=== PATIENT | male | born 1985 | race African-American/Black ===

== ENCOUNTER 2019-02-15 10:06 | Emergency (ER) | payer OTHER ==
[~2019-02-15] VITALS: Ht 190.5 cm; Wt 77.1 kg
[2019-02-15 10:13] VITALS: BP 112/68
== END 2019-02-15 11:13 | disposition home or self-care (01) ==
LOC: ER 10:06
DX: S62.331A Displaced fracture of neck of second metacarpal bone, left hand, initial encounter for closed fracture (principal); F17.210 Nicotine dependence, cigarettes, uncomplicated; Z88.1 Allergy status to other antibiotic agents; Y04.0XXA Assault by unarmed brawl or fight, initial encounter; Y93.89 Activity, other specified; Y92.89 Other specified places as the place of occurrence of the external cause; Y99.8 Other external cause status

== ENCOUNTER 2019-09-11 19:53 | Emergency (ER) | payer OTHER ==
[~2019-09-11] VITALS: Ht 190.5 cm; Wt 88.5 kg
[2019-09-11 20:31] LABS: ABSOLUTE NEUTROPHILS 8.3 thou/uL (1.4-8.2); BASOPHILS 0.5 % (0.0-2.0); EOSINOPHILS 0.7 % (0.0-3.0); HEMATOCRIT 51.4 % (42.0-52.0); HEMOGLOBIN 17.2 gm/dL (14.0-18.0); LYMPHOCYTES 15.1 % (24.0-44.0); MCH 32.3 pg (26.0-34.0); MCHC 33.4 g/dL (28.0-37.0); MCV 96.5 fL (80.0-100.0); MONOCYTES 6.8 % (1.0-8.0); PLATELET COUNT 360 thou/uL (150-400); POLYS 76.9 % (36.0-66.0); RBC 5.32 mil/uL (4.50-6.00); RDW 14.4 % (10.5-14.5); WBC 10.8 thou/uL (4.0-11.0)
[2019-09-11 20:36] LABS: ANION GAP 20 mmol/L (7-16); BUN 17 mg/dL (7-18); CALCIUM 10.3 mg/dL (8.5-10.1); CHLORIDE 99 mmol/L (98-107); CO2 16 mmol/L (21-32); CREATININE 1.9 mg/dL (0.7-1.3); GLUCOSE 191 mg/dL (74-106); POTASSIUM 4.2 mmol/L (3.5-5.1); SODIUM 135 mmol/L (136-145)
[2019-09-11 20:38] LABS: APTT 21.5 Seconds (24.5-32.8); PROTIME 10.3 Seconds (9.3-11.4)
[2019-09-11 20:45] LABS: ALBUMIN 4.2 g/dL (3.4-5.0); LIPASE 110 U/L (73-393); SALICYLATE 4.2 mg/dL (2.8-20.0); SGOT 47 U/L (15-37); SGPT 36 U/L (30-65); TOTAL BILIRUBIN 0.6 mg/dL (<0.1-1.0); TOTAL PROTEIN 8.1 g/dL (6.4-8.2); TROPONIN-I <0.06 ng/mL (<0.06)
[2019-09-11 21:49] LABS: URINE BILIRUBIN NEGATIVE (Negative); URINE BLOOD NEGATIVE (Negative); URINE CLARITY CLEAR; URINE GLUCOSE-RANDOM* NEGATIVE (Negative); URINE KETONES NEGATIVE (Negative); URINE LEUKOCYTES-REFLEX NEGATIVE (Negative); URINE NITRITE-REFLEX NEGATIVE (Negative); URINE PROTEIN (DIPSTICK) TRACE (Negative); URINE SPECIFIC GRAVITY 1.015 (1.005-1.035); URINE UROBILINOGEN 0.2 E.U./dl (0.2-1.0)
[2019-09-11 21:58] LABS: AMP/METHAMP POSITIVE (Negative); BARBITURATES Negative (Negative); BENZODIAZEPINES Negative (Negative); COCAINE Negative (Negative); METHADONE Negative (Negative); OPIATES Negative (Negative); PCP Negative (Negative)
[2019-09-11 22:04] LABS: URINE COLOR YELLOW
[2019-09-11] MEDS ORDERED: ONDANSETRON ODT8 MG PO (22:19)
[2019-09-11] MEDS ORDERED: TRAMADOL 50 MG50 MG PO (22:19)
[2019-09-11 22:34] VITALS: BP 119/72
--- NOTE | 2019-09-12 08:54 | EKG ---
[facility] [place] [address] ELECTROCARDIOGRAM REPORT Name: SHEEBA CABA Room #: DEP [facility]..#: [id number] Admission: 09/11/19 Attend Phys: Discharge: 09/11/19 Date of : 83 Report #: [id number] THIS REPORT FOR: cc: RAMIREZ - No family physician/PCP FAM - No family physician/PCP Jeffry Dempsey MD [facility] THIS REPORT FOR: //name// [facility] ED Test Date: 2019-09-11 Test Time: 20:10:43 Pat Name: SHEEBA CABA Department: Room: Gender: Nnps: MTARVIND : 1985 Requested By: Arpan Van Order Number: [id number] MD: Jeffry Dempsey Measurements Intervals [place] Rate: 99 P: 78 DC: 163 QRS: 52 QRSD: 89 T: 67 QT: 339 QTc: 435 Interpretive Statements Sinus rhythm ST elev, probable normal early repol pattern Baseline wander in lead(s) V5 Compared to ECG 01/12/2002 06:33:21 No significant change was found Electronically Signed On 09-12-2019 8:52:56 CDT by Jeffry Dempsey [email or web address] <ELECTRONICALLY SIGNED> By: Jeffry Dempsey MD, FAC 09/12/19 0852 09 09 Jeffry Dempsey MD, [facility] /EPI
== END 2019-09-11 22:35 | disposition home or self-care (01) ==
LOC: ER 19:53
PROVIDERS: Emergency Medicine
DX: S60.411A Abrasion of left index finger, initial encounter (principal); S60.410A Abrasion of right index finger, initial encounter; S60.413A Abrasion of left middle finger, initial encounter; S60.412A Abrasion of right middle finger, initial encounter; S60.415A Abrasion of left ring finger, initial encounter; S60.414A Abrasion of right ring finger, initial encounter; R07.89 Other chest pain; M79.642 Pain in left hand; N50.819 Testicular pain, unspecified; R74.8 Abnormal levels of other serum enzymes; R79.89 Other specified abnormal findings of blood chemistry; E87.2 Acidosis; F15.90 Other stimulant use, unspecified, uncomplicated; Z88.1 Allergy status to other antibiotic agents; Y08.89XA Assault by other specified means, initial encounter; Y93.89 Activity, other specified; Y92.89 Other specified places as the place of occurrence of the external cause; Y99.8 Other external cause status